=== PATIENT | female | born 1980 | race Caucasian/White ===

== ENCOUNTER 2016-05-19 15:35 | Emergency (ER) ==
--- NOTE | 2016-05-19 16:26 | PROVIDER DOCUMENTATION ---
HPI-EENT General <Janes Wasserman - Last Filed: 05/19/16 16:27> - General Source: patient - History of Present Illness-EENT General EENT Location: reports: throat Quality of Pain: reports: tightness Severity: reports: mild Onset/Duration: reports: this morning Timing: reports: still present, intermittent Prearrival Treatment: Initiated prescription meds (recently) Associated Symptoms: reports: sore throat Locality of Occurance: Home Similar Symptoms Previously?: Yes Recently seen or treated by another doctor?: Yes - Throat/Dental Throat/Dental Problem Symptoms: reports: sore throat Throat/Dental Problem Context: denies: recent dental extractions, fractured tooth <Destiny Jones - Last Filed: 05/19/16 16:34> - General Chief Complaint: Sore Throat Stated Complaint: SORE THROAT Time Seen by Provider: 05/19/16 16:23 Allergies/Adverse Reactions: Patient Allergies Allergy/AdvReac Type Severity Reaction Status Date / Time No Known Allergies Allergy Verified 02/17/16 23:17 Home Medications: Home Medication List Medication Instructions Recorded Confirmed Last Taken Type Alprazolam [Xanax] 0.5 mg PO DIRECTED PRN 02/17/16 02/17/16 Unknown History Hydrocodone/Acetaminophen [[place] 1 tab PO DIRECTED PRN PRN 02/17/16 02/17/16 Unknown History 7.5-325 Tablet] Amoxicillin [Amoxil] 500 mg PO BID #14 capsule 05/19/16 Unknown Rx Diphenhyramine/Al&mg Oh/Lido [Mbx 15 ml MT Q4-6H PRN PRN #1 bottle 05/19/16 Unknown Rx Solution] Prednisone 20 mg PO DAILY #6 tablet 05/19/16 Unknown Rx Review of Systems - Adult - REVIEW OF SYSTEMS - ADULT Constitutional: reports: no symptoms reported Eyes: reports: no symptoms reported Ears, Nose, Mouth & Throat: reports: throat pain. denies: ear pain, nose pain Cardiovascular: reports: no symptoms reported Respiratory: reports: no symptoms reported Gastrointestinal: reports: no symptoms reported Genitourinary: reports: no symptoms reported Musculoskeletal: reports: no symptoms reported Integumentary: reports: no symptoms reported Neurological: reports: no symptoms reported Psychiatric: reports: no symptoms reported Endocrine: reports: no symptoms reported Hematologic/Lymphatic: reports: no symptoms reported Allergic/Immunologic: reports: no symptoms reported All Other Systems: Reviewed and Negative <RobertDestiny - Last Filed: 05/19/16 16:34> Past History - Adult - PAST MEDICAL HISTORY-ADULT Review of Records: reports: Nursing Assessment Review, Medications Reviewed, Social history reviewed & non-contributory. Major Childhood Illnesses: reports: denies history Cardiovascular: reports: denies history Respiratory: reports: denies history Gastrointestinal: reports: denies history Obstetrical/Gynecological: reports: denies history Genitourinary: reports: denies history Musculoskeletal: reports: denies history Neurological: reports: denies history Psychiatric: reports: anxiety Endocrine/Immune: reports: denies history Other Conditions: reports: denies history - IMMUNIZATION STATUS Childhood Immunizations: See Nurse Assessment Flu Vaccine: See Nurse Assessment - FAMILY HISTORY Family History: reviewed, not pertinent - SOCIAL HISTORY Smoking: cigarettes, greater than 1 pack/day Provider spent 3-5 mins advising pt. on dangers of tobacco.: Discussed manners to quit use, and f/u contacts for add'l counseling. Substance Use: denies Living Situation: family <Destiny Jones - Last Filed: 05/19/16 16:34> Physical Exam- EENT - Physical Exam EENT Initial Vital Signs Reviewed: Yes General Appearance: appears well, alert, no apparent distress Eye Exam: bilateral eye: normal inspection, PERRL, EOMI Ear Exam: bilateral ear: auricle normal, canal normal, TM normal Nasal Exam: normal inspection Throat Exam: tonsillar exudate, tonsillar swelling Neck: non-tender, full range of motion, supple, lymphadenopathy (R side) Respiratory: chest non-tender, lungs clear, normal breath sounds, no pleuratic chest pain, no respiratory distress, no accessory muscle use Cardiovascular: normal peripheral pulses, regular rate, rhythm, no edema, no gallop, no JVD, no murmur Abdominal Exam: normal bowel sounds, non tender, soft, no organomegaly, no pulsatile mass Lymphatic: no adenopathy Back Exam: normal inspection, no CVA tenderness, no vertebral tenderness Extremity: normal range of motion, non-tender, normal gait, normal inspection, no pedal edema, no calf tenderness, normal capillary refill Integumentary: normal color, normal turgor, warm/dry Neurologic: grossly normal Psych/Mental Status: normal mood/affect, oriented x 3 <Destiny Jones - Last Filed: 05/19/16 16:34> Progress <Janes Wasserman - Last Filed: 05/19/16 16:27> <Destiny Jones - Last Filed: 05/19/16 16:34> - PLAN OF CARE/RESULTS Progress/Plan/Lab Results: Laboratory Tests 05/19/16 15:55 Group A Strep Rapid POSITIVE A Orders Category Date Time Status DIRECT STREP PL Stat Lab 05/19/16 15:55 Completed Dexamethasone [Decadron] Med 05/19/16 16:27 Discontinued 10 mg IM NOW ONE Penicillin G Benzathine [Bicillin l-A] Med 05/19/16 16:27 Discontinued 1,200,000 unit IM NOW ONE Vital Signs - 24 hr 05/19/16 15:39 Temperature 98.7 F Pulse Rate 87 Respiratory 18 Rate Blood Pressure 154/95 O2 Sat by Pulse 100 Oximetry (Destiny Jones) Departure - Departure Time of Disposition Order: 16:27 Certified Medical Emergency: Urgent <Janes Wasserman - Last Filed: 05/19/16 16:27> - Departure Time of Disposition Order: 16:34 Certified Medical Emergency: Emergent <Destiny Jones - Last Filed: 05/19/16 16:34> - Departure DIAGNOSIS: Strep pharyngitis, Enlarged lymph node in neck Disposition: HOME 01 Condition: Good Additional Instructions: Take medication as prescribed. Rest and stay well hydrated. Follow up with an ENT if symptoms persist. ED Follow Up Instructions: You have been treated by a care provider in the Emergency Department. These instructions are being provided to you so you can have an understanding of how to care for yourself upon discharge. Upon discharge from the Emergency Department, you are responsible for making arrangements for follow-up care by a physician of your choice. Take all prescribed medications as directed. Return to the Emergency Department immediately for any new or worsening symptoms. You may call the Physician Referral phone number at [phone] to obtain a list of Physicians who are taking new patients. Prescriptions: Amoxicillin [Amoxil] 500 mg PO BID #14 capsule Diphenhyramine/Al&mg Oh/Lido [Mbx Solution] 15 ml MT Q4-6H PRN PRN #1 bottle PRN Reason: Sore throat Prednisone 20 mg PO DAILY #6 tablet Referrals: Ayaan Good [Primary Care Provider] - Raghu Baldwin MD [STAFF PHYSICIAN] - Attestation - Physician/ WARREN Attestation Patient care was provided by Advanced Practice Provider:: Yes Advanced Practice Provider:: Janes Wasserman Advanced Practice Provider documentation review:: The Mid-level provider documentation, treatment plan and medical decision making was reviewed by the physician who agrees with all treatment and medical decision making by the MLP. <Janes Wasserman - Last Filed: 05/19/16 16:27> - Scribe Verification/Attestation Scribe:: Destiny Jones Acting as Scribe for:: Janes Wasserman Scribe documention review:: This chart was documented by a scribe and accurately reflects the service the provider performed and the decisions made by the provider. <Destiny Jones - Last Filed: 05/19/16 16:34> Physician Attestation
[2016-05-19] MEDS ORDERED: DECADRON IM ONE (16:27)
[2016-05-19] MEDS ORDERED: BICILLIN L-A IM ONE (16:27)
[2016-05-19 16:52] VITALS: BP 119/78
== END 2016-05-19 17:08 | disposition home or self-care (01) ==
LOC: P.ED 15:35
DX: J02.0 Streptococcal pharyngitis (principal); R59.0 Localized enlarged lymph nodes; R22.1 Localized swelling, mass and lump, neck; F41.9 Anxiety disorder, unspecified; F17.210 Nicotine dependence, cigarettes, uncomplicated; Z79.899 Other long term (current) drug therapy; Z71.6 Tobacco abuse counseling
CPT/HCPCS: 87430; 96372; J0561